=== PATIENT | female | born 1990 ===

== ENCOUNTER 2018-07-30 18:30 | Emergency (ER) | payer SELFPAY ==
[2018-07-30 18:44] VITALS: RESP 20; TEMP 98.3
--- NOTE | 2018-07-30 19:34 | C.PDOC ---
History Of Present Illness 28 year old female presents to the ER with abdominal pain since yesterday and right lower leg pain. Denies fever, chills, nausea, or vomiting. Chief Complaint (Nursing): Abdominal Pain History Per: Patient History/Exam Limitations: no limitations Onset/Duration Of Symptoms: Days (Yesterday) Current Symptoms Are (Timing): Still Present Location Of Pain/Discomfort: Other (Hypogastric) Quality Of Discomfort: Unable To Describe Associated Symptoms: denies: Fever, Chills, Nausea, Vomiting Exacerbating Factors: None Alleviating Factors: None Recent travel outside of the [place]: No Abnormal Vaginal Bleeding: No Past Medical History Reviewed: Historical Data, Nursing Documentation, Vital Signs Vital Signs: Last Vital Signs Temp 98.3 F 07/30/18 18:41 Pulse 90 07/30/18 18:41 Resp 20 07/30/18 18:41 BP 104/70 07/30/18 18:41 Pulse Ox 100 07/30/18 18:41 Family History: States: No Known Family Hx - Social History Hx Alcohol Use: No Hx Substance Use: No - Immunization History Hx Tetanus Toxoid Vaccination: No Hx Influenza Vaccination: No Hx Pneumococcal Vaccination: No Review Of Systems Constitutional: Negative for: Fever, Chills Cardiovascular: Negative for: Chest Pain, Palpitations Respiratory: Negative for: Cough, Shortness of Breath Gastrointestinal: Positive for: Abdominal Pain. Negative for: Nausea, Vomiting Neurological: Negative for: Weakness, Numbness Physical Exam - Physical Exam Appears: Non-toxic Skin: Normal Color, Warm, Dry Head: Atraumatic, Normacephalic Oral Mucosa: Moist Chest: Symmetrical, No Tenderness Cardiovascular: Rhythm Regular Respiratory: Normal Breath Sounds, No Rales, No Rhonchi, No Wheezing Gastrointestinal/Abdominal: Soft, Tenderness (Mild hypogastric), No Guarding, No Rebound Back: No CVA Tenderness Extremity: No Pedal Edema, No Swelling Neurological/Psych: Oriented x3, Normal Speech ED Course And Treatment - Laboratory Results Result Diagrams: 07/30/18 20:57 07/30/18 20:57 O2 Sat by Pulse Oximetry: 100 (Room air) Pulse Ox Interpretation: Normal Progress Note: Blood work, urinalysis, and pelvis US ordered. Disposition Counseled Patient/Family Regarding: Diagnosis - Disposition Referrals: [facility] [Outside] Disposition: HOME/ ROUTINE Disposition Time: 23:07 Condition: STABLE Prescriptions: Nitrofurantoin Macrocrystals [Macrobid] 1 cap PO BID #14 cap Instructions: Urinary Tract Infection, Adult (DC), Stomach Pain in Early Forms: [facility] (Belarusian), Gen Discharge Inst [place] Print Language: ERITREAN - POA Present On Arrival: None - Clinical Impression Clinical Impression: UTI (urinary tract infection) during - Scribe Statement The provider has reviewed the documentation as recorded by the Scribe Bronson Miller All medical record entries made by the Scribe were at my direction and personally dictated by me. I have reviewed the chart and agree that the record accurately reflects my personal performance of the history, physical exam, medical decision making, and the department course for this patient. I have also personally directed, reviewed, and agree with the discharge instructions and disposition.
[2018-07-30 21:04] LABS: BASO % 0.6 % (0.0-2.0); EOS # 0.1 K/uL (0.0-0.7); EOS % 0.7 % (0.0-4.0); HEMOGLOBIN 11.1 g/dL (11.0-16.0); LYMPH # 2.4 K/uL (1.0-4.3); LYMPH % 29.9 % (20.0-40.0); MEAN CELL VOLUME 91.3 fL (81.0-99.0); MEAN CORPUSCULAR HEMOGLOBIN 30.4 pg (27.0-31.0); MEAN CORPUSCULAR HGB CONC 33.3 g/dL (33.0-37.0); MEAN PLATELET VOLUME 9.4 fL (7.2-11.7); MONO # 0.5 K/uL (0.0-0.8); MONO % 5.8 % (0.0-10.0); NEUT # 5.1 K/uL (1.8-7.0); RBC 3.65 Mil/uL (3.80-5.20); RED CELL DISTRIBUTION WIDTH 14.2 % (11.5-14.5); WHITE BLOOD COUNT 8.1 K/uL (4.8-10.8)
[2018-07-30 21:11] LABS: HCG,QUALITATIVE URINE POSITIVE (NEGATIVE)
[2018-07-30 21:12] LABS: SQUAMOUS EPITHIAL 16 /hpf (0-5); URINE BACTERIA MOD (<OCC); URINE BILIRUBIN NEGATIVE (NEGATIVE); URINE BLOOD NEGATIVE (NEGATIVE); URINE CLARITY Hazy (Clear); URINE COLOR Yellow (YELLOW); URINE GLUCOSE (UA) NORMAL (Normal); URINE LEUKOCYTE ESTERASE 1+ Leu/uL (Negative); URINE PROTEIN NEGATIVE (NEGATIVE); URINE UROBILINOGEN NORMAL mg/dL (0.2-1.0)
[2018-07-30 21:22] LABS: ALB/GLOB RATIO 1.3 (1.0-2.1); ALBUMIN 4.2 g/dL (3.5-5.0); BLOOD UREA NITROGEN 6 mg/dL (7-17); CALCIUM 8.8 mg/dl (8.6-10.4); GFR NON-AFRICAN AMERICAN > 60
[2018-07-30 21:29] LABS: ALT/SGPT 22 U/L (9-52); AST/SGOT 44 U/L (14-36)
[2018-07-30 23:14] VITALS: BP 128/76; PULSE 88; O2SAT 97
--- NOTE | 2018-07-31 08:40 | US ---
Indication: abd pain Comparison: None available Technique: Real-time ultrasound was performed through the pelvis. Findings: There is a single living fetus in transverse presentation. Anterior placenta. The placenta is not previa. The right ovary measures approximately 2.9 x 3.2 x 3.3 cm. The left ovary measures approximately 2.9 x 2.1 x 2.3 cm. There are no adnexal masses or cysts evident. Cervix length measures approximately 3.3 cm. Measurements and calculations: Fetus has a composite sonographic age of 16 weeks 1 day. This calculation is based on the biparietal diameter, head circumference, abdominal circumference, and femur length. Estimated heart rate 138 beats per min. Impression: Single living fetus with a composite sonographic age of 16 weeks 1 day Estimated heart rate 138 beats per min. The study was performed for the emergent evaluation of pain, and the whole anatomic survey of the fetus was not performed. This should be performed on an outpatient elective basis as clinically warranted. Advise an outpatient anomaly screen at 16-18 weeks gestational age. Preliminary impression was provided by [employer].
== END 2018-07-30 23:13 | disposition home or self-care (01) ==
LOC: C.ER 18:30 → EDSEX 18:30 → C.ER 23:13
DX: O23.42 Unspecified infection of urinary tract in pregnancy, second trimester (principal); Z3A.16 16 weeks gestation of pregnancy

== ENCOUNTER 2018-11-04 11:11 | Emergency (ER) | payer OTHER ==
[2018-11-04 12:05] VITALS: BMI 27.3
[2018-11-04 12:40] LABS: SQUAMOUS EPITHIAL 75 /hpf (0-5); URINE BACTERIA RARE (<OCC); URINE BILIRUBIN NEGATIVE (NEGATIVE); URINE BLOOD NEGATIVE (NEGATIVE); URINE CLARITY Hazy (Clear); URINE COLOR Amber (YELLOW); URINE GLUCOSE (UA) NORMAL (Normal); URINE LEUKOCYTE ESTERASE 2+ Leu/uL (Negative); URINE PROTEIN 1+ mg/dL (NEGATIVE); URINE UROBILINOGEN NORMAL mg/dL (0.2-1.0)
--- NOTE | 2018-11-04 12:57 | OBDCSUM ---
Datetime: 11/04/2018 12:55 Discharged to, Provider: Home Follow up at, Provider: 2-3 Follow up in weeks, Provider: [facility] [place] Discharge Comment, Provider: dc home macrobid ptl g po hy f/ Discharge Diagnosis Prov Other: 28 uti
--- NOTE | 2018-11-04 12:58 | OBHP ---
Datetime: 11/04/2018 12:07 Admit Comment, IP Provider: 28 y F w/ no PMHx, presents to ED for UTI like symptoms. Pt repo rts burining on urination for the past 3-4 days. Denies F/C, N/V, abdominal pain, increased frequency . Patient reports she was seen in ED on 07/30 with similar symptoms, treated w/ PO abx and U/S performe d revealing 16 week 1 day fetus, estimated by biparietal diabemeter, head circumference. LMP 04/06/19 . Pt denies care. Pt reports drinking 5-6 bottles of water, denies headaches, chest pain, SOB, abdominal pain, hemat uria, constipation, diarrhea. ObHx: Menarch age 12; LMP 04/06/18; sexually active with partner, irregular menstrual cycles prior to ; approximately 2-3 months, lasting 3-4 days; previous 3 2005 - 10.5 lbs, male, full term 2009 - 8 lbs, female, full term 2014 - 7.5 lbs, male, full term PMHx: Denies Meds: Denies PSHx: Denies Allergies: NKDA FHx: Mother - diabetes SHx: denies tobacco, ETOH, illicit drug use Vitals: 97.2 F, HR 81, BP 116/67 HEENT: PERRL Cardio: S1, S2 Resp: CTAL B/L Abd: Soft, non tender, + BS : Fundal Height 29.5 A/P 28 F presents to ED for burning sensation on urination; currently on 29w6d estimated p er U/S performed on 07/30; has received no care - Urinalysis ua 2 + le plan dc home macrobid ptl g po hy f/ Abdomen - PN: Normal (Annotations: Data stored by CPN on behalf of user) Lungs - PN: Normal Heart - PN: Normal Neurologic - PN: Normal HEENT - PN: Normal General - PN: Normal EGA AdmitDate IP: 29.5 IP Chief Complaint: Signs/symptoms UTI
[2018-11-04 21:28] VITALS: BP 93/56; PULSE 86; TEMP 97.2
== END 2018-11-04 13:05 | disposition home or self-care (01) ==
LOC: C.EROB 11:11
DX: O23.43 Unspecified infection of urinary tract in pregnancy, third trimester (principal); Z3A.29 29 weeks gestation of pregnancy

== ENCOUNTER 2018-11-09 08:35 | Outpatient (CLI) | payer OTHER | END 2018-11-09 08:36 | disposition home or self-care (01) | LOC: C.LAB 08:35 | DX: O09.33 Supervision of pregnancy with insufficient antenatal care, third trimester (principal) ==